=== PATIENT | female | born 1985 | race Caucasian/White ===

== ENCOUNTER → 2016-12-06 | Outpatient (CLI) | payer OTHER, BC ==
--- NOTE | 2016-12-07 14:00 | MR ---
EXAM DATE: 12/06/16 PATIENT'S AGE: 31 Patient: THANIA BUSTAMANTE Facility: [place], [place] Site . Site : 1984 Study: MRI Spine Cervical [id number]/16/2017 7:18:56 PM Ordering Physician: Violeta Johnson Final Report: Indication: Radiculopathy. Comparison: CT 11/14/2016. Technique: Sagittal T1, T2 and STIR sequences. Axial T2 and gradient sequences. Findings: Straightening of the normal cervical lordosis which may be due to muscle spasm or patient positioning. Otherwise, normal vertebral body facet alignment. No fractures. No vertebral body loss of height. No spondylosis. No ligamentous injury. Normal marrow signal. Normal cord signal. C2-3: No spinal canal or neural foraminal narrowing. C3-4: No spinal canal or neural foraminal narrowing. C4-5: No spinal canal or neural foraminal narrowing. C5-6: Posterior disk bulge with partial effacement of the ventral thecal sac. Otherwise, no spinal canal or neural foraminal narrowing. C6-7: Posterior disk bulge with no narrowing of spinal canal. Uncovertebral joint hypertrophy results in mild narrowing of the left neural foramen. No narrowing of the right neural foramen. C7-T1: No spinal canal or neural foraminal narrowing. No spinal canal or neural foraminal narrowing in the visualized upper thoracic spine. Impression: 1. Straightening of the normal cervical lordosis. Otherwise, normal alignment. No fractures. No spondylolisthesis. 2. Normal cord signal. 3. At C6-7, posterior disc bulge. No narrowing of the spinal canal. Mild narrowing of the left neural foramen. 4. No spinal canal or neural foraminal narrowing at the remaining levels Dictated by Manolo Osborne MD @ Dec 06 2016 9:02PM (Electronic Signature) Report Signed by Proxy and Original Signed Document filed in the Medical Record. MTDD
== END ==
LOC: MW.MRI 16:21
PROVIDERS: ATTEND Physician Assistant
DX: M54.12 Radiculopathy, cervical region (principal)
CPT/HCPCS: 72141; 72141-26

== ENCOUNTER → 2016-12-13 | Outpatient (CLI) | payer BC | LOC: MW.CHRC 15:15 | PROVIDERS: ATTEND Family Medicine | DX: J02.9 Acute pharyngitis, unspecified (principal); R52 Pain, unspecified | CPT/HCPCS: 87081; 87804; 87880 ==